=== PATIENT | female | born 1985 | race Caucasian/White ===

== ENCOUNTER → 2025-11-23 | Outpatient (REF) | payer OTHER | LOC: M PLALAB 13:53 | PROVIDERS: ATTEND Nurse Practitioner Family | DX: Z53.9 Procedure and treatment not carried out, unspecified reason (principal); Z34.80 Encounter for supervision of other normal pregnancy, unspecified trimester; O09.521 Supervision of elderly multigravida, first trimester ==

== ENCOUNTER → 2025-11-23 | Outpatient (CLI) | payer OTHER ==
[2025-11-23 17:32] LABS: PLATELET COUNT, AUTOMATED 212 10^3/uL (150-450)
[2025-11-23 17:37] LABS: LDH LACTATE DEHYDROGENASE 175 U/L (120-246)
[2025-11-23 17:38] LABS: ALT/SGPT 20 U/L (7.0-40); AST/SGOT 15 U/L (<34); CREATININE FOR GFR 0.70 MG/DL (0.55-1.30); GLOMERULAR FILTRATION RATE > 90.0 (>60)
[2025-11-23 18:06] LABS: TOTAL PROTEIN,RANDOM URINE 13.1 MG/DL (0.0-14.0)
[2025-11-23 18:43] LABS: HIV 1&2 SCREEN NEGATIVE (NEGATIVE)
[2025-11-23 18:48] LABS: Trichomonas vaginalis (AMP) NOT DETECTED (NEGATIVE)
[2025-11-23 18:50] LABS: HEPATITIS C VIRUS ABY INDEX 0.04 INDEX (<0.8)
[2025-11-23 19:11] LABS: GC DNA AMPLIFICATION NEGATIVE (NEGATIVE)
== END ==
LOC: M PLALAB 14:12
PROVIDERS: ATTEND Nurse Practitioner Family
DX: Z34.80 Encounter for supervision of other normal pregnancy, unspecified trimester (principal)